=== PATIENT | female | born 1990 | race Caucasian/White ===

== ENCOUNTER 2018-03-25 04:20 | Observation (INO) | payer BC ==
[~2018-03-25 04:20] MED LIST: TRAZADONE HYDR100 MG PO
[2018-03-25] MEDS ORDERED: SYNTHROID0.05 MG/TA PO (04:43)
[2018-03-25 04:46] LABS: BASO % 0.3 % (0.0-2.0); EOS # 0.2 (0.0-0.7); EOS % 1.2 % (0-4.0); GRAN # 12.2 (1.4-6.5); GRAN % 79.3 % (42.2-75.2); LYMPH # 2.1 (1.2-3.4); LYMPH % 13.6 % (20.0-51.0); MEAN CELL VOLUME 82 fl (80.0-100.0); MEAN CORPUSCULAR HEMOGLOBIN 30 pg (27.0-31.0); MEAN CORPUSCULAR HGB CONC 37 g/dl (33.0-37.0); MEAN PLATELET VOLUME 8.9 fl (7.4-10.4); MONO # 0.8 (0.1-0.6); MONO % 5.2 % (1.7-9.3); PLATELET COUNT 248 K/mm3 (130-400); RED BLOOD COUNT 4.28 M/mm3 (4.10-5.30)
[2018-03-25 04:47] LABS: HEMATOCRIT 35.2 % (37.0-47.0)
[2018-03-25] MEDS ORDERED: NORCO 325 MG-51 TAB PO (10:14)
[2018-03-25 10:15] VITALS: BP 99/49; PULSE 68; TEMP 98.5
[2018-03-25] MEDS ORDERED: IBU600 MG PO (10:15)
[2018-03-25 10:30] VITALS: BP 98/50; PULSE 65
[2018-03-25 10:45] VITALS: BP 104/49; PULSE 65
[2018-03-25 11:00] VITALS: BP 97/49; PULSE 66
[2018-03-25 11:30] VITALS: BP 98/51; PULSE 74
[2018-03-25 12:00] VITALS: BP 108/65; PULSE 83
== END 2018-03-25 13:00 | disposition home or self-care (01) ==
LOC: COL.ER 04:20 → OB 08:37
PROVIDERS: Emergency Medicine
DX: O02.1 Missed abortion (principal); Z3A.10 10 weeks gestation of pregnancy; O99.281 Endocrine, nutritional and metabolic diseases complicating pregnancy, first trimester; E03.9 Hypothyroidism, unspecified
CPT/HCPCS: J1170; J1885; J2210; J2405; J2704; J3010; J7030; J7120

== ENCOUNTER → 2018-12-11 | Outpatient (CLI) | payer BC ==
[~2018-12-11] MED LIST changes: +IBU600 MG PO; +NORCO 325 MG-51 TAB PO; +SYNTHROID0.05 MG/TA PO
== END ==
LOC: SUN.DIA 08:34
DX: O24.419 Gestational diabetes mellitus in pregnancy, unspecified control (principal); Z3A.29 29 weeks gestation of pregnancy
CPT/HCPCS: G0108

== ENCOUNTER → 2018-12-24 | Outpatient (CLI) | payer BC | LOC: SUN.DIA 14:31 | DX: O24.419 Gestational diabetes mellitus in pregnancy, unspecified control (principal); Z3A.31 31 weeks gestation of pregnancy | CPT/HCPCS: G0108 ==

== ENCOUNTER → 2019-01-21 | Outpatient (CLI) | payer BC | LOC: SUN.DIA 11:47 | DX: O24.419 Gestational diabetes mellitus in pregnancy, unspecified control (principal); Z3A.35 35 weeks gestation of pregnancy | CPT/HCPCS: G0108 ==

== ENCOUNTER 2019-02-06 21:50 | Outpatient (CLI) | payer BC ==
[~2019-02-06] VITALS: Ht 152.4 cm; Wt 65.5 kg
--- NOTE | 2019-02-06 22:00 | NUR ---
at 37 weeks arrives to unit ambulatory with complaint of falling into chair and hitting abdomen at work. Pt reports good movement, denies contractions, denies LOF or vaginal bleeding. Pt denies headaches, blurry vision, or RUQ pain. Pt oriented to room, bed in low and locked position, call light within reach. EFM and toco explained and applied. Plan of care discussed with patient and spouse. Admission assessment started. Vital signs obtained.
[2019-02-06] MEDS ORDERED: PRENATAL MVI (22:12)
[2019-02-06 22:30] VITALS: BP 139/79; PULSE 78; TEMP 97.9
--- NOTE | 2019-02-06 22:30 | NUR ---
Updated patient on plan to monitor for 1 hour. Jeff shows occasional contractions, pt denies feeling any pain, only feels tightening with contractions.
[2019-02-06 23:10] VITALS: BP 113/66; PULSE 78
--- NOTE | 2019-02-06 23:15 | NUR ---
Category 1 tracing for 1 hour. Pt denies any pain. Feels painless tightening with contractions. Discharge instructions reviewed with patient, pt verbalized understanding. Return precautions reviewed. Pt seen ambulating off unit with spouse.
== END 2019-02-06 23:15 | disposition home or self-care (01) ==
LOC: LDRO 21:50
DX: O9A.213 Injury, poisoning and certain other consequences of external causes complicating pregnancy, third trimester (principal); W19.XXXA Unspecified fall, initial encounter; Z3A.37 37 weeks gestation of pregnancy

== ENCOUNTER 2019-02-20 05:57 | Inpatient (IN) | payer BC ==
[~2019-02-20] VITALS: Ht 152.4 cm; Wt 66.4 kg
[2019-02-20] VITALS (18 sets, daily range): BP systolic 98–126; BP diastolic 55–78; PULSE 71–97; TEMP 97.6–98.1
[~2019-02-20 05:57] MED LIST changes: +PRENATAL MVI
--- NOTE | 2019-02-20 08:48 | NUR ---
Pt arrives on unit ambulatory for primary csection for face presentation. G2L0 at 39.0 weeks gestation. Changed into clean gown. EFM and toco applied. VSS. IV started in . Labs drawn. LR infusing. Admission assessment completed. Consents signed. Reactive FHR strip obtained. Skin prep performed. Pt updated on POC. Safety reviewed. No questions or concerns at this time. Bed locked in low position. Call light within reach.
[2019-02-20] MEDS ORDERED: OSCAL 500 TAB500 MG (08:52)
[2019-02-20 09:17] LABS: BASO % 0.3 % (0.0-2.0); EOS # 0.1 (0.0-0.7); EOS % 0.8 % (0-4.0); GRAN # 7.3 (1.4-6.5); GRAN % 68.2 % (42.2-75.2); HEMATOCRIT 39.2 % (37.0-47.0); HEMOGLOBIN 14.2 g/dl (12.5-16.0); LYMPH # 2.3 (1.2-3.4); LYMPH % 21.6 % (20.0-51.0); MEAN CELL VOLUME 87 fl (80.0-100.0); MEAN CORPUSCULAR HEMOGLOBIN 32 pg (27.0-31.0); MEAN CORPUSCULAR HGB CONC 36 g/dl (33.0-37.0); MEAN PLATELET VOLUME 10.7 fl (7.4-10.4); MONO # 0.9 (0.1-0.6); MONO % 8.6 % (1.7-9.3); PLATELET COUNT 188 K/mm3 (130-400); RED BLOOD COUNT 4.51 M/mm3 (4.10-5.30); REDCELL DISTRIBUTION WIDTH-CV 12.2 % (11.5-14.5)
[2019-02-20] MEDS ORDERED: IBU600 MG PO (11:52)
[2019-02-20] MEDS ORDERED: PERCOCET 325 MG1 TA2 PO (11:53)
[2019-02-21 04:30] VITALS: BP 109/55; PULSE 66; TEMP 98.1
[2019-02-21 07:30] VITALS: BP 113/54; PULSE 78; TEMP 98.3
--- NOTE | 2019-02-21 09:30 | NUR ---
Rests in bed, alert. 1008 Ibuprofen 600 mg given as ordered.
[2019-02-21 11:12] LABS: HEMATOCRIT 33.3 % (37.0-47.0); HEMOGLOBIN 11.7 g/dl (12.5-16.0)
--- NOTE | 2019-02-21 12:40 | NUR ---
Percocet 5/325 mg two given per request and as ordered.
[2019-02-21 16:15] VITALS: BP 116/64; PULSE 82; TEMP 98
--- NOTE | 2019-02-21 16:25 | NUR ---
Percocet 5/325 mg p.o. two given, ibuprofen 600 mg given per request and as ordered.
[2019-02-21 23:00] VITALS: BP 104/56; PULSE 77; TEMP 97.8
[2019-02-22 07:10] VITALS: BP 115/62; PULSE 79; TEMP 97.7
[2019-02-22 16:00] VITALS: BP 120/66; PULSE 88; TEMP 97.9
[2019-02-22 20:00] VITALS: BP 113/70; PULSE 81; TEMP 97.7
[2019-02-23 07:51] VITALS: BP 113/73; PULSE 81; TEMP 98
--- NOTE | 2019-02-23 11:46 | NUR ---
Initial visit; Mom thanked Street Sweeper Operator for offering congratulations and God's blessings for the of their daughter. Street Sweeper Operator thanked family for choosing [facility].
--- NOTE | 2019-02-23 14:45 | NUR ---
Discharge instructions given, pt verbalizes understanding. No further questions noted. Bath demo given. Bands matched and hugs tag removed.
== END 2019-02-23 15:10 | disposition home or self-care (01) | DRG 788 ==
LOC: OB 05:57
PROVIDERS: ADMIT Obstetrics & Gynecology
PROC: 10D00Z1 Extraction of Products of Conception, Low, Open Approach (ICD-10-PCS; principal; 2019-02-20)
DX: O32.3XX0 Maternal care for face, brow and chin presentation, not applicable or unspecified (principal); Z3A.39 39 weeks gestation of pregnancy; Z37.0 Single live birth; O24.420 Gestational diabetes mellitus in childbirth, diet controlled; O99.284 Endocrine, nutritional and metabolic diseases complicating childbirth; E03.9 Hypothyroidism, unspecified; O69.81X0 Labor and delivery complicated by cord around neck, without compression, not applicable or unspecified
CPT/HCPCS: J0690; J1885; J2370; J2405; J2590; J7120

== ENCOUNTER 2021-05-22 05:45 | Outpatient (CLI) | payer MEDICAID ==
[2021-05-22] VITALS (8 sets, daily range): BP systolic 92–110; BP diastolic 53–62; PULSE 80–86; TEMP 97.9
[~2021-05-22] VITALS: Ht 152.4 cm; Wt 62.3 kg
[~2021-05-22 05:45] MED LIST changes: +OSCAL 500 TAB500 MG; +PERCOCET 325 MG1 TA2 PO
--- NOTE | 2021-05-22 05:55 | NUR ---
0555- PATIENT AND SPOUSE AMBULATORY TO THE UNIT. ORIENTATED TO ROOM AND CHANGED INTO CLEAN GOWN. PATIENT VOIDED IN SPECIMEN CUP. THIS IS A PATIENT OF DR RUSH THAT WAS SEEN WITH [facility] UNTIL 17 WEEKS WHEN SHE TRANSFERRED CARE TO FOR COMPLICATIONS WITH THE BABY. BABY HAS A BLADDER OBSTRUCTION AND HAS HAD 2 SHUNTS PLACED. PATIENT HAS ANHYDRAMNIOS BECAUSE OF THIS. PATIENT STATED SHE WAS SEEN AT LAST EVENING FOR LEFT PELVIC PAIN AND VAGINAL PAIN AND WAS DISCHARGED AND LEFT AROUND 0100 TODAY. PATIENT STATED SHE STARTED TO FEEL CRAMPY AROUND 0200 AND NOTICED BRIGHT RED PERIOD BLOOD THAT SATURATED A PAD ENOUGH TO LEAK ONTO HER CLOTHING AROUND 0520. PATIENT HAD A PAD ON WHEN SHE ARRIVED ON THE UNIT THAT SHE HAD BEEN WEARING FOR ABOUT AN HOUR THAT HAD 10-20 PERCENT OF THE TOP OF THE PAD COVERED IN SPOTTING. PATIENT VERBALIZED BEING DIAGNOSED WITH PLACENTA PREVIA AT 20 WEEKS AT . PATIENT REPORTS GOOD MOVEMENT AND NO CONTRACTIONS. PATIENT STATED SHE STILL FEELS CRAMPY. 0600- EFM AND TOCO ON AND TRACING INTERMITTENTLY DUE TO PATIENT BEING 24 WEEKS. VITALS TAKEN. SHIFT CHANGE IN PROCESS AND [place] BREWER TOOK OVER AT THIS POINT. REPORT OF EVERYTHING THE PATIENT TOLD ME WAS GIVEN TO OSMAN AT THIS POINT.
--- NOTE | 2021-05-22 06:30 | NUR ---
No active bleeding noted @ this time. Venita pad in place.
--- NOTE | 2021-05-22 06:45 | NUR ---
Patient refuses Betamethasone at this time. Would like to clarify with KU PRANAY if this medication is safe with kidney condition.
[2021-05-22] MEDS ORDERED: CALCIUM CARBON650 M2 (06:51)
[2021-05-22] MEDS ORDERED: PRILOSEC 20MG20 MG PO (06:51)
[2021-05-22] MEDS ORDERED: VITAMIN D 400400 IU PO (06:52)
--- NOTE | 2021-05-22 07:00 | NUR ---
No active bleeding noted. Venita pad remains in place.
[2021-05-22 07:44] LABS: BASO % 0.3 % (0.0-2.0); EOS # 0.1 (0.0-0.7); HEMATOCRIT 33.3 % (37.0-47.0); HEMOGLOBIN 11.8 g/dl (12.5-16.0); LYMPH % 15.2 % (20.0-51.0); MEAN CELL VOLUME 87 fl (80.0-100.0); MEAN CORPUSCULAR HEMOGLOBIN 31 pg (27.0-31.0); MEAN CORPUSCULAR HGB CONC 35 g/dl (33.0-37.0); MEAN PLATELET VOLUME 9.2 fl (7.4-10.4); MONO # 0.9 (0.1-0.6); MONO % 6.6 % (1.7-9.3); PLATELET COUNT 230 K/mm3 (130-400); RED BLOOD COUNT 3.84 M/mm3 (4.10-5.30); REDCELL DISTRIBUTION WIDTH-CV 12.4 % (11.5-14.5)
--- NOTE | 2021-05-22 08:00 | NUR ---
Venita pad in place, no active bleeding noted.
--- NOTE | 2021-05-22 09:44 | NUR ---
here for evaluation, discuss with patient plan of care, options.
--- NOTE | 2021-05-22 09:54 | NUR ---
speaking with (M specialist) via telephone for recommendations.
--- NOTE | 2021-05-22 10:00 | NUR ---
Betamethasone 12 mg IM administered to right buttock with explanation to patient, explained per recommendation. Discussed repeat dose would be administered in 24 hours. Verbalizes understanding.
--- NOTE | 2021-05-22 10:20 | NUR ---
Allowed up to empty bladder, mesh underwear, adrienne pad provided.
--- NOTE | 2021-05-22 10:23 | NUR ---
Report called to VIRGINIA Reyes, receiving nurse @ [facility].
--- NOTE | 2021-05-22 10:42 | NUR ---
Bhupinder, transfer care team, notified patient has just departed via EMS.
== END 2021-05-22 10:40 | disposition short-term general hospital (02) ==
LOC: LDRO 05:45
PROVIDERS: Obstetrics & Gynecology
DX: O46.92 Antepartum hemorrhage, unspecified, second trimester (principal); Z3A.24 24 weeks gestation of pregnancy
CPT/HCPCS: J0702; J7120

== ENCOUNTER → 2022-06-21 | Outpatient (CLI) | payer MEDICAID ==
[~2022-06-21] MED LIST changes: +CALCIUM CARBON650 M2; +PRILOSEC 20MG20 MG PO; +VITAMIN D 400400 IU PO
== END ==
LOC: COL.RAD 12:26
DX: R20.2 Paresthesia of skin (principal); R25.2 Cramp and spasm; G43.909 Migraine, unspecified, not intractable, without status migrainosus
CPT/HCPCS: A9575